=== PATIENT | female | born 1960 | race Caucasian/White ===

== ENCOUNTER 2018-10-02 05:27 | Emergency (ER) | payer OTHER ==
[2018-10-02] MEDS ORDERED: 0.9 % SODIUM CHLORIDE 1,000 ML IV ONE (05:46)
[2018-10-02] MEDS ORDERED: KETOROLAC TROMETHAMINE 30 MG/1ML VIAL IVP ONE (05:47)
[2018-10-02] MEDS ORDERED: ONDANSETRON HCL/PF 4 MG/ 2ML VIAL IVP ONE (05:47)
--- NOTE | 2018-10-02 05:49 | ED Physician Documentation ---
General Adult - HISTORIAN Historian: patient, spouse - HPI Stated Complaint: migraine Chief Complaint: General Adult Onset: hours Timing: still present Severity: moderate Further Comments: yes (Pt is a 58 yo female with a migraine headache. Pt has n/v, photophobia. Headache is similar to previous migraines, but with more n/v than usual. No focal deficits.) - ROS CONST: no problems EYES/ENT: none CVS/RESP: none GI/: vomiting, nausea MS/SKIN/LYMPH: none NEURO/PSYCH: headache - PAST HX Past History: other (MS, Anxiety, HTN, Migraine, OA.) Surgeries/Procedures: hysterectomy Allergies/Adverse Reactions: Allergies Allergy/AdvReac Type Severity Reaction Status Date / Time shellfish derived Allergy Severe Anaphylaxis Verified 10/02/18 05:38 Home Medications: Ambulatory Orders Medication Instructions Recorded Atenolol [Tenormin] 25 mg PO D 10/02/18 Clonazepam 0.5 mg PO D 10/02/18 Estradiol [Vivelle-Dot] 1 patch TOP DIRECTED 10/02/18 Oxybutynin Chloride [Ditropan] 5 mg PO D 10/02/18 Rizatriptan Benzoate [Rizatriptan] 10 mg PO DIRECTED 10/02/18 Venlafaxine HCl [Venlafaxine HCl 75 mg PO BID 10/02/18 ER] - SOCIAL HX Smoking History: non-smoker - FAMILY HX Family History: No - VITAL SIGNS Vital Signs: Vital Signs Temp Pulse Resp BP Pulse Ox 98.2 F 94 H 18 109/83 97 10/02/18 05:28 10/02/18 05:28 10/02/18 05:28 10/02/18 05:28 10/02/18 05:28 - REVIEWED ASSESSMENTS Nursing Assessment Reviewed: Yes Vitals Reviewed: Yes Progress - Progress Progress: NS 1 L IVF Dilaudid 1 mg IV Zofran 4 mg IV Headache resolved. n/v resolved. Pt may follow up for scheduled colonoscopy later this am. ED Results Lab/Radiology - Orders Orders: ED Orders Category Date Time Status Ketorolac Tromethamine [Toradol] Med 10/02/18 05:47 Once 30 mg IVP NOW ONE NORMAL SALINE @ 1000 MLS/HR ( 1000ml BOLUS) Med 10/02/18 05:46 Ordered 0.9 % Sodium Chloride [Normal Saline] 1,000 ml IV Q1H Ondansetron HCl/Pf [Zofran 4 mg/2 ml] Med 10/02/18 05:47 Once 4 mg IVP NOW ONE General Adult Physical Exam - PHYSICAL EXAM GENERAL APPEARANCE: moderate distress EENT: eye inspection normal, pharynx normal NECK: normal inspection, supple RESPIRATORY: no resp distress, chest non-tender, breath sounds normal CVS: reg rate & rhythm, heart sounds normal ABDOMEN: soft, no organomegaly, normal bowel sounds BACK: normal inspection, no CVA tenderness SKIN: warm/dry, normal color EXTREMITIES: non-tender, normal range of motion, no evidence of injury NEURO: oriented X3, CN's nml as tested, motor nml, sensation nml Discharge Clincal Impression: Migraine Qualifiers: Migraine type: without aura Status migrainosus presence: without status migrainosus Intractability: not intractable Qualified Code(s): G43.009 - Migraine without aura, not intractable, without status migrainosus Condition: Stable Disposition: 01 HOME, SELF-CARE Decision to Admit: NO Decision Time: 06:44
[2018-10-02] MEDS ORDERED: HYDROmorphone HCL/PF 1 MG/ML DISP.SYRIN IVP ONE (05:55)
[2018-10-02 07:00] VITALS: BP 111/70
== END 2018-10-02 06:53 | disposition home or self-care (01) ==
LOC: ED 05:27
DX: G43.009 Migraine without aura, not intractable, without status migrainosus (principal)
CPT/HCPCS: 96365; 96375; 99282; 99284; J1170; J2405; J7030; S1016